=== PATIENT | female | born 1995 | race Caucasian/White ===

== ENCOUNTER 2020-02-24 16:04 | Outpatient (CLI) | payer OTHER ==
--- NOTE | 2020-02-24 17:23 | MRI Report ---
PROCEDURE: Knee LT W/O INDICATIONS: KNEE PAIN TECHNIQUE: Noncontrast sagittal PD fast spin echo and T2 fast spin echo with fat saturation, sagittal 3-D gradie nt sequence with fat saturation; coronal T1 spin echo and PD fast spin echo with fat saturation, and axial PD fast spin echo with fat saturation through the knee. COMPARISON: None. FINDINGS: Image quality: Excellent. Menisci: Medial meniscal tear involving the anterior horn and body with bucket-handle appearance and the displ aced bucket-handle fragment seen in the intercondylar notch. There is also a separate undersurface te ar of the posterior horn seen on image 22/901. Lateral meniscus intact. Cruciate ligaments: Postsurgical changes related to prior ACL reconstruction. The graft however is not visualized and pre sumed ruptured. Posterior cruciate ligament appears intact. Medial structures: The medial collateral ligament appears intact. The semimembranosus tendon appears intact. Visualized portions of the pes anserinus tendons appear normal. No abnormal bursal fluid. Lateral structures: Lateral collateral ligament appears grossly intact. Biceps femoris tendon appears intact. Iliotibial band within normal limits. Popliteus tendon within normal limits. Anterior structures: Patellar tendon appears intact Quadriceps tendon appears intact. Medial and lateral patellofemoral ligaments appear grossly intact. Patellar alignment is normal. Hoffa's fat pad unremarkable. Bones and cartilage: No bone marrow contusions or fractures. Within the medial compartment, no focal cartilage defect Within the lateral compartment, no focal cartilage defect Within the patellofemoral compartment, partial thickness loss and surface fraying of the cartilage ov erlying the median patellar ridge and central femoral trochlea. Joint space: No joint effusion. Trace Aguirre?s cyst. No specific evidence of loose body identified. IMPRESSION: Bucket-handle tear of the medial meniscus involving the anterior horn and body with displaced fragmen t seen in the intercondylar notch. Additional undersurface tear of the posterior horn as above. Status post ACL reconstruction, however the graft is not visualized and likely ruptured. This finding technically age indeterminate Patellofemoral joint degeneration Trace Aguirre's cyst Reviewed by: Cipriano Garrido MD on 02/24/2020 5:21 PM PDT Approved by: Cipriano Garrido MD on 02/24/2020 5:21 PM PDT Station ID: [id number]
== END 2020-02-24 16:05 | disposition home or self-care (01) ==
LOC: DI 16:04
DX: S83.212A Bucket-handle tear of medial meniscus, current injury, left knee, initial encounter (principal); M71.22 Synovial cyst of popliteal space [Baker], left knee

== ENCOUNTER 2020-03-21 07:35 | Day surgery (SDC) | payer OTHER ==
[~2020-03-21 07:35] MED LIST: CEFAZOLIN SODIUM IN 0.9 % NACL 2 GM/100 ML BAG IV ONE
[2020-03-21] MEDS ORDERED: LACTATED RINGERS 1,000 ML IV ONE ×3 (08:04→10:40)
[2020-03-21] MEDS ORDERED: EPINEPHrine 1 MG/ML AMP ONE (08:26)
[2020-03-21] MEDS ORDERED: BUPIVACAINE 0.25% PF 30 ML VIAL ONE (08:27)
[2020-03-21] MEDS ORDERED: PROPOFOL 200 MG/20 ML VIAL IVP ONE (08:30)
[2020-03-21] MEDS ORDERED: DEXAMETHASONE 4 MG/ML VIAL IVP ONE (08:30)
[2020-03-21] MEDS ORDERED: LIDOCAINE-MPF 2% 5 ML VIAL IM ONE (08:30)
[2020-03-21] MEDS ORDERED: fentaNYL 100 MCG/2 ML VIAL IVP ONE (08:30)
[2020-03-21] MEDS ORDERED: ONDANSETRON 4 MG/2 ML VIAL IVP ONE (08:30)
[2020-03-21] MEDS ORDERED: MIDAZOLAM 2 MG/2 ML VIAL IVP ONE (08:30)
[2020-03-21 08:36] LABS: HCG UR QUAL NEGATIVE
[2020-03-21] MEDS ORDERED: BUPIVACAINE 0.25% PF 30 ML VIAL SUBQ ONE (08:56)
[2020-03-21] MEDS ORDERED: EPINEPHrine 1 MG/ML AMP IVP ONE ×2 (08:56→09:00)
--- NOTE | 2020-03-21 09:34 | ANESTHESIA ---
Pre-Anesthesia VS, & Labs - Diagnosis Left ACL RUpture - Procedure Knee Arthroscopy Vital Signs: Temp Pulse Resp BP Pulse Ox 36.2 C L 54 L 16 119/80 98 03/21/20 07:37 03/21/20 07:37 03/21/20 07:37 03/21/20 07:37 03/21/20 07:37 Height: 5 ft 8 in Weight (kg): 108.86 kg Body Mass Index: 36.5 BMI Classification: Obese - NPO >8 hours - Is Patient ?: No - Lab Results Lab results reviewed: Yes Home Medications and Allergies Home Medications: Ambulatory Orders Albuterol Sulfate [Proair Respiclick] 90 mcg IH PRN 03/16/20 Albuterol Sulfate [Proair Respiclick] 90 mcg IH PRN 03/16/20 Allergies/Adverse Reactions: Allergies Allergy/AdvReac Type Severity Reaction Status Date / Time No Known Drug Allergies Allergy Verified 03/16/20 09:21 Anes History & Medical History - Anesthetic History Anesthesia Complications: reports: No previous complications Family history of Anesthesia Complications: Denies Family history of Malignant Hyperthermia: Denies - Medical History Cardiovascular: reports: None Pulmonary: reports: None Gastrointestinal: reports: None Urinary: reports: None Musculoskeletal: reports: Other Endocrine/Autoimmune: reports: Other Skin: reports: None - Surgical History Orthopedic: ACL reconstruction Exam General: Alert Dental: WNL Mouth Openin Fingerbreadth Neck Mobility: Normal Mallampati classification: II Thyromental Distance: 4-6 cm Respiratory: Lungs clear, Normal breath sounds, No respiratory distress, No accessory muscle use Cardiovascular: Regular rate, Normal S1, Normal S2, No murmurs Plan Anesthesia Type: General, Adductor Block Regional Block: Per Surgeon's request for Post Op pain control Consent for Procedure(s) Verified and Reviewed: Yes Code Status: Attempt Resuscitation ASA classification: 2-Mild systemic disease Is this case an emergency?: No
[2020-03-21] MEDS ORDERED: ONDANSETRON 4 MG/2 ML VIAL IVP PRN ×2 (09:35→10:23)
[2020-03-21] MEDS ORDERED: METOCLOPRAMIDE 10 MG/2 ML VIAL IVP PRN (09:35)
[2020-03-21] MEDS ORDERED: diphenhydrAMINE INJ 50 MG/ML VIAL IVP PRN (09:35)
[2020-03-21] MEDS ORDERED: HYDROmorphone 0.5 MG/0.5 ML SYRINGE IVP PRN (09:35)
[2020-03-21] MEDS ORDERED: NALOXONE 0.4 MG/ML VIAL IVP PRN (09:35)
[2020-03-21] MEDS ORDERED: ATROPINE ABBOJECT 1 MG/10 ML SYRINGE IVP PRN (09:35)
[2020-03-21] MEDS ORDERED: fentaNYL 100 MCG/2 ML VIAL IVP PRN (09:35)
[2020-03-21] MEDS ORDERED: ACETAMINOPHEN 1,000 MG/100 ML 100 ML IV ONE (09:35)
[2020-03-21] MEDS ORDERED: ePHEDrine 50 MG/ML VIAL IVP PRN (09:35)
[2020-03-21] MEDS ORDERED: LACTATED RINGERS 1,000 ML IV SCH (10:00)
[2020-03-21] MEDS ORDERED: oxyCODONE 5 MG TABLET PO PRN (10:23)
[2020-03-21] MEDS ORDERED: KETOROLAC 30 MG/ML VIAL IVP ONE (10:23)
[2020-03-21] MEDS ORDERED: KETOROLAC 15 MG/ML VIAL ONE (10:34)
--- NOTE | 2020-03-21 10:41 | OPERATIVE REPORT ---
Operative Report - Other Other Information/Narrative: Date of Surgery: 21 March 2020 Pre-Op Diagnosis: Left knee ACL graft rupture. Left knee medial meniscus tear. Left knee lateral meniscus tear. Procedure: Left knee arthroscopy. Subtotal medial meniscectomy. Lateral meniscus root debridement. Patellar chondroplasty Postop Diagnosis: Left ACL graft rupture. Large irreducible bucket-handle medial meniscus tear. Complete lateral meniscus root tear with scarring to the prior ACL graft and therefore no retraction. Patella cartilage lesion measuring 10 mm x 10 mm on the medial facet. Primary Surgeon: Aurelio Garcia Secondary Surgeon: None Complications: None Tourniquet Time: 36 minutes EBL: 5 cc Indication For Surgery: 24-year-old female who underwent left ACL reconstruction with hamstring autograft in 2015. She also believes she had some meniscal work but is unsure what was done. Since that surgery there has been no new injuries however recently she has noted instability and pain in the left knee making it difficult for her to do the activities that she would like. Imaging work-up and examination revealed an ACL graft rupture medial meniscus tear and potentially a lateral meniscus root tear. I discussed with her various treatment options. 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 I discussed 1 stage versus two-stage procedure I discussed the potential rehab protocols for each of them. I discussed with her the risk of potentially needing a meniscal allograft. The risks, benefits, and alternatives were discussed. Risks include pain, bleeding, infection, damage to nearby structures and cartilage, lack of symptom relief, need for further surgery, DVT, PE, stroke, and . Written consent was obtained. Examination Under Anesthesia: ROM equal to the contralateral side. Stable dial at 30 & 90 degrees. Stable to varus and valgus stressing at 0 & 30 degrees. Unstable Kelin. Unstable Pivot shift. No mechanical sensation Arthroscopic Findings: Loose bodies -small soft fragments consistent with prior graft rupture Synovium -normal Patella cartilage -10 mm x 10 mm near full-thickness cartilage lesion of the medial patellar facet. Otherwise normal Trochlear cartilage -partial thickness linear tracking Medial femoral condyle cartilage -normal. Small marginal osteophyte is seen Medial tibial plateau cartilage -normal Medial meniscus -large subtotal bucket-handle meniscus tear that was locked in the notch and irreducible. This was therefore excised taking care to leave the couple millimeter rim intact. Anterior cruciate ligament -the graft is ruptured. Tibial tunnel is in a reasonable position but slightly medial from where I would put it. The femoral tunnel seemed quite vertical and some of the graft tissue had healed to the torn lateral meniscus posterior root. Because the lateral meniscus was being held in place by this tissue I made the decision to not take it down at the surgery. Posterior cruciate ligament -normal Lateral femoral condyle cartilage -normal. Small marginal osteophyte is seen Lateral tibial plateau cartilage -normal Lateral meniscus -there was a complete tear of the posterior horn at the root. The posterior horn tissue had healed down to some of the ACL graft and therefore had not retracted at all. The remainder of the lateral meniscus was normal Procedure in Detail: The patient was met in the pre-operative hold area on the day of the procedure. The operative extremity was signed and questions were answered. The patient was brought to the operating room and a general anesthetic was administered. Supine position was used and bony prominences were padded. An examination under anesthesia was performed. Standard prepping and draping was performed. A time out confirmed patient identification, laterality, procedure, allergies, antibiotics, and images. An Esmarch was used to exsanguinate the limb and the tourniquet was elevated to 250 mmHg. A standard diagnostic arthroscopy of the knee was performed through anterol ateral and anteromedial portal sites. The anteromedial portal was created under direct visualization after localizing with a spinal needle. The findings can be found above. I then proceeded to attempt from both the medial side and the lateral side to reduce the bucket-handle meniscus tear. The meniscus tear was found to be chronic and irreducible and the torn fragment was therefore excised with a biter and a shaver. I took care to leave the rim of meniscus tissue around the edge and to not destabilize it at the posterior root. Once all unstable pieces of meniscus were final images were taken on that side. I then transitioned into the notch and I found that the ACL graft had been torn and appeared to be quite vertical. Moving into the lateral side I found her to be a complete lateral root rupture but the lateral root had not retracted. Interestingly the lateral root tissue had scarred into and healed into some of the graft tissue and it seemed as though this was acting much like a meniscal femoral ligament and kept the lateral root from retracting. My plan coming into the case was to attempt a single-stage revision if possible. Given the severity of her medial meniscus tear and the fact that it was irrepairable, as well as the lack of any significant degenerative change in the medial or lateral hemijoints, it was my opinion that a meniscal allograft could potentially be indicated in this patient. Meniscal allograft procedure is not a procedure that I perform and an outside consultation would be required for this. Having made the decision that a second surgery would be necessary and a further assessment will be required by a sports medicine trained surgeon I opted to not take down and drill the femoral or tibial tunnels and this was for 2 reasons. #1 drilling and grafting these tunnels would buy the patient a 6-month recovery time before she can have her second stage procedure. #2 drilling the femoral tunnel and excising the tissue at that location would require taking down of the bridge that was keeping the lateral meniscus root from retracting. This would then necessitate that I perform a lateral root repair during this surgery with the subsequent rigorous rehabilitation that would be required. For these reasons I decided to complete the surgery at this point with the hope that her second surgery could be performed in a single stage by someone who does meniscal allograft surgery in the near future. I then moved up into the suprapatellar space and debrided the patellar cartilage lesion that was seen. The patellar cartilage lesion ended up measuring 10 mm x 10 mm and was near full-thickness with some fraying of the edge. All unstable portions of cartilage were excised. Final images were taken and all arthroscopic fluid and instruments were removed from the knee. The incisions were closed with buried monocryl sutures. Steri strips were applied. []cc of 0.25% Marcaine without epinephrine was injected near the portal sites. A sterile dressing and compression stocking was placed. The patient was awakened and transferred to recovery in stable condition.
[2020-03-21] MEDS ORDERED: oxyCODONE 5 MG TABLET ONE (11:20)
[2020-03-21 11:22] VITALS: BP 124/64
--- NOTE | 2020-03-21 13:04 | ANESTHESIA POST OP EVALUATION ---
Anesthesia Post Eval - Post Anesthesia Eval Vitals: Last Vital Signs Temp 36.5 C 03/21/20 11:21 Pulse 74 03/21/20 11:21 Resp 16 03/21/20 11:21 BP 124/64 03/21/20 11:21 Pulse Ox 98 03/21/20 11:21 CV Function Including HR & BP: positive: Stable Pain Control: positive: Satisfactory Nausea & Vomiting: positive: Negative Mental Status: positive: Baseline Respiratory Status: Airway Patent Hydration Status: Satisfactory Anesthesia Complications: positive: None
== END 2020-03-21 07:36 | disposition home or self-care (01) ==
LOC: SDS 07:35
PROVIDERS: ATTEND Orthopaedic Surgery
DX: S83.512A Sprain of anterior cruciate ligament of left knee, initial encounter (principal); S83.282A Other tear of lateral meniscus, current injury, left knee, initial encounter; S83.212A Bucket-handle tear of medial meniscus, current injury, left knee, initial encounter; M17.12 Unilateral primary osteoarthritis, left knee
CPT/HCPCS: 81025